=== PATIENT | male | born 1960 | race Caucasian/White ===

== ENCOUNTER 2017-05-01 12:32 | Emergency (ER) | payer OTHER ==
[2017-05-01 12:53] VITALS: BP 148/88
[2017-05-01] MEDS ORDERED: Lidocaine 1% PF 2 ML SDV ONE (13:00)
--- NOTE | 2017-05-01 13:18 | EDM.PDOC ---
ED HPI GENERAL MEDICAL PROBLEM - General Chief Complaint: Laceration Stated Complaint: FISH HOOK IN LIP Time Seen by Provider: 05/01/17 12:35 Source of Information: Reports: Patient History Limitations: Reports: No Limitations - History of Present Illness INITIAL COMMENTS - FREE TEXT/NARRATIVE: According to patient he was fishing for [place]. He did get the [place] fish, but the fish got of the herbert and the herbert swung in the air and hit his lip and got stuck in the lower lip. Pt cut the fish hook off and the hook is embedded in the lower lip. Pt is upto date on his tetanus. No other complaints. Onset: Today Onset Date: 05/01/17 Onset Time: 11:00 Improves with: Reports: None Worsens with: Reports: None Associated Symptoms: Denies: Confusion, Chest Pain, Cough, Diaphoresis, Fever/ Chills, Headaches, Nausea/Vomiting - Related Data Allergies Allergy/AdvReac Type Severity Reaction Status Date / Time No Known Allergies Allergy Verified 05/01/17 12:53 Home Meds: Home Meds NK [No Known Home Meds] 05/01/17 [History] ED ROS GENERAL - Review of Systems Review Of Systems: See Below Constitutional: Denies: Fever, Chills, Night Sweats HEENT: Denies: Throat Pain, Throat Swelling Respiratory: Denies: Shortness of Breath, Cough Cardiovascular: Denies: Lightheadedness GI/Abdominal: Denies: Abdominal Pain, Nausea, Vomiting Skin: Reports: Bruising. Denies: Pruritis, Rash Neurological: Denies: Tingling, Weakness ED EXAM, SKIN/RASH Exam: See Below Exam Limited By: No Limitations General Appearance: Alert, WD/WN, No Apparent Distress Ears: Normal External Exam, Normal Canal, Hearing Grossly Normal, Normal TMs Nose: Normal Inspection, Normal Mucosa, No Blood Throat/Mouth: Normal Teeth, Normal Gums, Normal Oropharynx, Normal Voice, Other (there is a large fish hook seen stuck in the right lower aspect of the lip.) Head: Atraumatic, Normocephalic Neck: Normal Inspection, Supple, Non-Tender, Full Range of Motion Course - Vital Signs Text/Narrative:: Pt is upto date on his tetanus. The area was infiltrated with Lidocaine. the hook was removed using needle technique under aseptic precautions. Simple antibiotic dressing done. Advised to keep the area clean. Followup with PCP next week for recheck. Last Recorded V/S: Last Vital Signs Temp 98.2 F 05/01/17 12:50 Pulse 68 05/01/17 12:50 Resp BP 148/88 H 05/01/17 12:50 Pulse Ox 99 05/01/17 12:50 Departure - Departure Time of Disposition: 13:15 Disposition: Home, Self-Care 01 Condition: Good Clinical Impression: Fish hook injury of cheek - Discharge Information Instructions: Laceration Care, Adult Referrals: PCP,None [Primary Care Provider] - Forms: ED Department Discharge - Problem List & Annotations (1) Fish hook injury of cheek SNOMED Code(s): 093635886 Code(s): S09.93XA - UNSPECIFIED INJURY OF FACE, INITIAL ENCOUNTER Status: Acute - Problem List Review Problem List Initiated/Reviewed/Updated: Yes - Assessment/Plan Assessment:: Right lower lip fish hook Plan: Pt is upto date on his tetanus. The area was infiltrated with Lidocaine. the hook was removed using needle technique under aseptic precautions. Simple antibiotic dressing done. Advised to keep the area clean. Followup with PCP next week for recheck.
== END 2017-05-01 13:14 | disposition home or self-care (01) ==
LOC: LB.ED 12:32
DX: S00.80XA Unspecified superficial injury of other part of head, initial encounter (principal); W26.9XXA Contact with unspecified sharp object(s), initial encounter
CPT/HCPCS: 99283